=== PATIENT | male | born 1975 | race Caucasian/White ===

== ENCOUNTER 2021-02-23 20:45 | Emergency (ER) | payer OTHER ==
[~2021-02-23 20:45] MED LIST: HYDROCODON-ACE1 EAC4 PO; NAPROXEN500 MG PO
[2021-02-24] MEDS ORDERED: AUGMENTIN 875-1 EACH PO (02:23)
== END 2021-02-24 02:33 | disposition home or self-care (01) ==
LOC: FER 20:45
DX: S01.511A Laceration without foreign body of lip, initial encounter (principal); Z23 Encounter for immunization; W54.1XXA Struck by dog, initial encounter; Y92.009 Unspecified place in unspecified non-institutional (private) residence as the place of occurrence of the external cause
CPT/HCPCS: 90471; 90715